=== PATIENT | male | born 1970 | race African-American/Black ===

== ENCOUNTER 2017-02-23 13:06 | Inpatient (IN) | payer MEDICAID ==
[~2017-02-23] VITALS: Ht 165.1 cm; Wt 59.0 kg
[~2017-02-23 13:06] MED LIST: BACL-141 PO; DOCU-138 PO; SENN-22 PO
[2017-02-23 15:00] LABS: MEAN CORPUSCULAR HEMOGLOBIN 25.7 pg (28.0-32.0); MEAN CORPUSCULAR VOLUME 80.4 fL (80.0-94.0); MEAN PLATELET VOLUME 7.2 fl (7.4-10.4); PLATELET 323 x1000/uL (130-400); RED BLOOD CELL COUNT 2.33 mill/uL (4.7-6.1); RED CELL DISTRIBUTION WIDTH 16.6 % (11.6-14.6)
[2017-02-23 15:05] LABS: INR 1.2; PROTHROMBIN TIME 12.1 sec
[2017-02-23 15:06] LABS: HEMATOCRIT. 18.7 % (42.0-52.0)
[2017-02-23 15:27] LABS: PLATELET ESTIMATE NORMAL
[2017-02-23 15:42] LABS: CHLORIDE 106 mEq/L (98-107)
[2017-02-23 15:50] LABS: CARBON DIOXIDE 20 mEq/L (21-32)
[2017-02-23 17:34] LABS: CLARITY URINE TURBID (CLEAR); COLOR URINE RED (YELLOW); GLUCOSE URINE NEGATIVE (NEGATIVE); KETONES URINE NEGATIVE (NEGATIVE); LEUKOCYTE ESTERASE URINE 3+ (NEGATIVE); NITRITE URINE POSITIVE (NEGATIVE); OCCULT BLOOD URINE 2+ (NEGATIVE); PH URINE 5.5 (4.5-8.0); PROTEIN URINE 2+ (NEGATIVE); SPECIFIC GRAVITY URINE 1.009 (1.005-1.030); UROBILINOGEN URINE 0.2 E.U./dL (0.2-1.0)
[2017-02-23] MEDS ORDERED: SODIUM CHLORIDE 0.9% 1,000 ML IV ONE (18:30)
[2017-02-23] MEDS ORDERED: LEVOFLOXACIN 500MG PREMIX 100 ML IV ONE (20:00)
[2017-02-23 21:27] LABS: HEMATOCRIT 23.8 % (42.0-52.0); HEMOGLOBIN 7.5 g/dL (14.0-18.0); MEAN CORPUSCULAR HEMOGLOBIN 25.9 pg (28.0-32.0); MEAN CORPUSCULAR VOLUME 82.1 fL (80.0-94.0); PLATELET 439 x1000/uL (130-400); RED CELL DISTRIBUTION WIDTH 16.7 % (11.6-14.6)
[2017-02-23] MEDS ORDERED: ZOLPIDEM TARTRATE 5MG TABLET PO PRN (21:45)
[2017-02-23] MEDS ORDERED: NA PHOS,M-B/NA PHOS,DI-BA ENEMA 118ML PR PRN (21:45)
[2017-02-23] MEDS ORDERED: DOCUSATE SODIUM 100MG CAPSULE PO PRN (21:45)
[2017-02-23] MEDS ORDERED: GUAIFENESIN 200MG/10ML SUGAR FREE UDC PO PRN (21:45)
[2017-02-23] MEDS ORDERED: LORAZEPAM 2MG/ML CPJ IV PRN (21:45)
[2017-02-23] MEDS ORDERED: IPRATROPIUM/ALBUTEROL 0.5-3(2.5)MG/3ML NEB INH PRN (21:45)
[2017-02-24] VITALS (35 sets, daily range): BP systolic 51–186; BP diastolic 25–135
[2017-02-24] MEDS: ACETAMINOPHEN 325MG TABLET PO PRN ×2 (01:17→23:28)
[2017-02-24] MEDS: SUCRALFATE 1 G/10 ML UDC PO SCH ×4 (06:35→22:03)
[2017-02-24 08:49] LABS: *AMPHETAMINES SCREEN URINE NEGATIVE (NEGATIVE); *BARBITURATES SCREEN URINE NEGATIVE (NEGATIVE); *BENZODIAZEPINES SCREEN URINE NEGATIVE (NEGATIVE); *COCAINE SCREEN URINE NEGATIVE (NEGATIVE); CANNABINOID URINE SCREEN NEGATIVE (NEGATIVE); OPIATES URINE SCREEN NEGATIVE (NEGATIVE); PHENCYCLIDINE URINE SCREEN NEGATIVE (NEGATIVE)
[2017-02-24 09:04] LABS: METHADONE URINE SCREEN NEGATIVE (NEGATIVE)
[2017-02-24] MEDS: PANTOPRAZOLE SODIUM 40 MG/VIAL IV SCH (10:35)
[2017-02-24] MEDS: ONDANSETRON HCL 4MG/2ML VIAL IV PRN (12:05)
[2017-02-24] MEDS ORDERED: SODIUM CHLORIDE 0.9% 500 ML IV STA (15:26)
[2017-02-24] MEDS ORDERED: SODIUM CHLORIDE 0.9% 500 ML IV NR (15:45)
[2017-02-24 16:39] LABS: HEMATOCRIT. 26.2 % (42.0-52.0); HEMOGLOBIN. 8.4 g/dL (14.0-18.0); MEAN CORPUSCULAR HEMOGLOBIN 27.5 pg (28.0-32.0); MEAN CORPUSCULAR VOLUME 85.8 fL (80.0-94.0); MEAN PLATELET VOLUME 7.9 fl (7.4-10.4); PLATELET 304 x1000/uL (130-400); RED BLOOD CELL COUNT 3.05 mill/uL (4.7-6.1); RED CELL DISTRIBUTION WIDTH 16.8 % (11.6-14.6)
[2017-02-24] MEDS ORDERED: SODIUM CHLORIDE 0.9% 1,000 ML IV STA (17:06)
[2017-02-24] MEDS: ALBUMIN HUMAN 25GM/100ML (25%) IV SCH (18:29)
[2017-02-24] MEDS: TRAMADOL 50MG TABLET PO PRN (18:44)
[2017-02-24] MEDS ORDERED: LEVOFLOXACIN 500MG PREMIX 100 ML IV SCH (20:00)
[2017-02-24 21:06] LABS: PLATELET ESTIMATE NORMAL
[2017-02-24] MEDS ORDERED: ALBUMIN HUMAN 25GM/100ML (25%) IV SCH (22:00)
[2017-02-24] MEDS: LEVOFLOXACIN 500MG PREMIX 100 ML IV SCH (22:03)
[2017-02-25] VITALS (64 sets, daily range): BP systolic 63–138; BP diastolic 39–116
[2017-02-25] MEDS: ALBUMIN HUMAN 25GM/100ML (25%) IV SCH ×2 (01:19→09:26)
[2017-02-25] MEDS: SUCRALFATE 1 G/10 ML UDC PO SCH ×4 (06:25→22:01)
[2017-02-25] MEDS: PANTOPRAZOLE SODIUM 40 MG/VIAL IV SCH (08:25)
[2017-02-25 09:15] LABS: HEMOGLOBIN. 7.5 g/dL (14.0-18.0); MEAN CORPUSCULAR HEMOGLOBIN 27.5 pg (28.0-32.0); MEAN CORPUSCULAR VOLUME 84.7 fL (80.0-94.0); MEAN PLATELET VOLUME 7.9 fl (7.4-10.4); PLATELET 232 x1000/uL (130-400); RED BLOOD CELL COUNT 2.72 mill/uL (4.7-6.1); RED CELL DISTRIBUTION WIDTH 16.6 % (11.6-14.6)
[2017-02-25 09:21] LABS: CHLORIDE 111 mEq/L (98-107)
[2017-02-25] MEDS: SODIUM CHLORIDE 0.9% 1,000 ML IV SCH ×2 (09:27→20:10)
[2017-02-25] MEDS: MIDODRINE HCL 2.5MG TABLET PO SCH ×3 (09:27→16:32)
[2017-02-25 09:28] LABS: CARBON DIOXIDE 17 mEq/L (21-32)
[2017-02-25 10:02] LABS: PLATELET ESTIMATE NORMAL
[2017-02-25] MEDS ORDERED: KCL 20MEQ/100ML PREMIX 100 ML IV ONE (11:00)
[2017-02-25] MEDS ORDERED: NOREPINEPHRINE 8 MG in DEXT 5% WATER 242 ML IV PRN (11:00)
[2017-02-25] MEDS ORDERED: POTASSIUM CHLORIDE INJ 40 MEQ in DEXT 5% WATER 250 ML IV ONE (11:00)
[2017-02-25] MEDS ORDERED: POTASSIUM CHLORIDE 20MEQ/PACKET PO NR (11:00)
[2017-02-25] MEDS ORDERED: MAGNESIUM 2 G PREMIX 50 ML IV SCH (12:00)
[2017-02-25] MEDS ORDERED: POTASSIUM CHLORIDE INJ 60 MEQ in DEXT 5% WATER 500 ML IV NR (12:30)
[2017-02-25] MEDS: ONDANSETRON HCL 4MG/2ML VIAL IV PRN (12:37)
[2017-02-25 14:40] LABS: HEMATOCRIT 27.2 % (42.0-52.0); HEMOGLOBIN 8.8 g/dL (14.0-18.0)
[2017-02-25] MEDS: TRAMADOL 50MG TABLET PO PRN ×2 (15:17→23:36)
[2017-02-25] MEDS: LEVOFLOXACIN 500MG PREMIX 100 ML IV SCH (20:10)
[2017-02-26] VITALS (26 sets, daily range): BP systolic 80–155; BP diastolic 37–108
[2017-02-26] MEDS: SUCRALFATE 1 G/10 ML UDC PO SCH ×4 (05:39→20:23)
[2017-02-26 05:52] LABS: HEMATOCRIT. 28.7 % (42.0-52.0); HEMOGLOBIN. 9.4 g/dL (14.0-18.0); MEAN CORPUSCULAR HEMOGLOBIN 28.4 pg (28.0-32.0); MEAN CORPUSCULAR VOLUME 86.7 fL (80.0-94.0); MEAN PLATELET VOLUME 8.1 fl (7.4-10.4); PLATELET 211 x1000/uL (130-400); RED BLOOD CELL COUNT 3.31 mill/uL (4.7-6.1)
[2017-02-26 06:54] LABS: CARBON DIOXIDE 19 mEq/L (21-32); CHLORIDE 114 mEq/L (98-107)
[2017-02-26 07:36] LABS: PLATELET ESTIMATE NORMAL
[2017-02-26] MEDS: PANTOPRAZOLE SODIUM 40 MG/VIAL IV SCH (08:07)
[2017-02-26] MEDS: MIDODRINE HCL 2.5MG TABLET PO SCH ×3 (08:08→16:31)
[2017-02-26] MEDS: SODIUM CHLORIDE 0.9% 1,000 ML IV SCH ×2 (11:56→23:56)
[2017-02-26] MEDS: LEVOFLOXACIN 500MG PREMIX 100 ML IV SCH (21:22)
[2017-02-26] MEDS: TRAMADOL 50MG TABLET PO PRN (23:52)
[2017-02-27] VITALS: BP 124/93
[2017-02-27 04:00] VITALS: BP 107/83
[2017-02-27] MEDS: SUCRALFATE 1 G/10 ML UDC PO SCH ×4 (05:54→21:56)
[2017-02-27 08:00] VITALS: BP 109/86
[2017-02-27] MEDS: MIDODRINE HCL 2.5MG TABLET PO SCH (08:48)
[2017-02-27] MEDS: PANTOPRAZOLE SODIUM 40 MG/VIAL IV SCH (08:48)
[2017-02-27 11:50] LABS: HEMATOCRIT. 26.1 % (42.0-52.0); HEMOGLOBIN. 8.6 g/dL (14.0-18.0); MEAN CORPUSCULAR HEMOGLOBIN 28.5 pg (28.0-32.0); MEAN CORPUSCULAR VOLUME 86.4 fL (80.0-94.0); MEAN PLATELET VOLUME 8.4 fl (7.4-10.4); PLATELET 213 x1000/uL (130-400); RED BLOOD CELL COUNT 3.02 mill/uL (4.7-6.1); RED CELL DISTRIBUTION WIDTH 17.3 % (11.6-14.6)
[2017-02-27 12:00] VITALS: BP 109/83
[2017-02-27 12:06] LABS: CARBON DIOXIDE 22 mEq/L (21-32); CHLORIDE 115 mEq/L (98-107)
[2017-02-27] MEDS ORDERED: POTASSIUM CHLORIDE 20MEQ TABLET SR PO SCH (12:45)
[2017-02-27 13:00] LABS: PLATELET ESTIMATE NORMAL
[2017-02-27] MEDS: MIDODRINE HCL 5MG TABLET PO SCH ×2 (13:45→17:33)
[2017-02-27] MEDS: TRAMADOL 50MG TABLET PO PRN (13:48)
[2017-02-27] MEDS: CEFEPIME 1,000 MG in DEXTROSE 5% WATER 50 ML IV SCH (13:51)
[2017-02-27] MEDS ORDERED: POTASSIUM CHLORIDE INJ 40 MEQ in DEXT 5% WATER 250 ML IV SCH (15:00)
[2017-02-27] MEDS ORDERED: MAGNESIUM 2 G PREMIX 50 ML IV SCH (15:00)
[2017-02-27 16:00] VITALS: BP 119/94
[2017-02-27] MEDS: SODIUM HYPOCHLORITE 0.125% 473ML SOLUTION TOP SCH (18:31)
[2017-02-27 20:00] VITALS: BP 119/90
[2017-02-28] VITALS: BP 138/80
[2017-02-28 04:00] VITALS: BP 116/90
[2017-02-28] MEDS: SODIUM CHLORIDE 0.9% 1,000 ML IV SCH ×2 (04:49→19:03)
[2017-02-28] MEDS: CEFEPIME 1,000 MG in DEXTROSE 5% WATER 50 ML IV SCH ×2 (04:49→15:14)
[2017-02-28] MEDS: SUCRALFATE 1 G/10 ML UDC PO SCH ×4 (06:54→20:10)
[2017-02-28 08:00] VITALS: BP 148/74
[2017-02-28] MEDS: PANTOPRAZOLE SODIUM 40 MG/VIAL IV SCH (08:39)
[2017-02-28] MEDS: TRAMADOL 50MG TABLET PO PRN ×2 (08:40→21:43)
[2017-02-28] MEDS: SODIUM HYPOCHLORITE 0.125% 473ML SOLUTION TOP SCH (08:46)
[2017-02-28] MEDS: MIDODRINE HCL 5MG TABLET PO SCH ×4 (09:00→17:21)
[2017-02-28 12:00] VITALS: BP 108/84
[2017-02-28 15:52] VITALS: BP 90/57
[2017-02-28 20:00] VITALS: BP 129/75
[2017-02-28] MEDS: ASCORBIC ACID 250 MG TABLET PO SCH (20:10)
[2017-02-28] MEDS: ONDANSETRON HCL 4MG/2ML VIAL IV PRN (21:31)
[2017-02-28] MEDS: BISACODYL 10MG SUPP PR PRN (21:40)
[2017-03-01] VITALS (7 sets, daily range): BP systolic 94–130; BP diastolic 64–94
[2017-03-01] MEDS: CEFEPIME 1,000 MG in DEXTROSE 5% WATER 50 ML IV SCH ×2 (00:39→12:27)
[2017-03-01] MEDS: ONDANSETRON HCL 4MG/2ML VIAL IV PRN ×2 (02:08→14:26)
[2017-03-01] MEDS: SODIUM CHLORIDE 0.9% 1,000 ML IV SCH ×2 (06:34→20:12)
[2017-03-01] MEDS: SUCRALFATE 1 G/10 ML UDC PO SCH ×4 (06:34→20:12)
[2017-03-01] MEDS: ZINC SULFATE 220 MG ( 50 ) CAPSULE PO SCH (09:47)
[2017-03-01] MEDS: PANTOPRAZOLE SODIUM 40 MG/VIAL IV SCH (09:47)
[2017-03-01] MEDS: MIDODRINE HCL 5MG TABLET PO SCH ×3 (09:48→17:48)
[2017-03-01] MEDS: TRAMADOL 50MG TABLET PO PRN ×2 (09:48→20:13)
[2017-03-01] MEDS: ASCORBIC ACID 250 MG TABLET PO SCH ×2 (09:48→20:12)
[2017-03-01] MEDS: MULTIVITAMINS,THER W-MINERALS TABLET PO SCH (09:48)
[2017-03-01] MEDS: SODIUM HYPOCHLORITE 0.125% 473ML SOLUTION TOP SCH (09:55)
[2017-03-01] MEDS: MAGNESIUM/ALUMINUM HYDROXIDE/SIMETHICONE 30ML UDC PO PRN (14:53)
[2017-03-02] VITALS: BP 110/84
[2017-03-02] MEDS: CEFEPIME 1,000 MG in DEXTROSE 5% WATER 50 ML IV SCH ×2 (00:13→12:39)
[2017-03-02 04:00] VITALS: BP 107/75
[2017-03-02] MEDS: SODIUM CHLORIDE 0.9% 1,000 ML IV SCH ×2 (06:27→20:33)
[2017-03-02] MEDS: SUCRALFATE 1 G/10 ML UDC PO SCH ×4 (06:27→20:33)
[2017-03-02 09:00] VITALS: BP 85/59
[2017-03-02] MEDS: ZINC SULFATE 220 MG ( 50 ) CAPSULE PO SCH (09:09)
[2017-03-02] MEDS: ASCORBIC ACID 250 MG TABLET PO SCH ×2 (09:09→20:33)
[2017-03-02] MEDS: MULTIVITAMINS,THER W-MINERALS TABLET PO SCH (09:09)
[2017-03-02] MEDS: PANTOPRAZOLE SODIUM 40 MG/VIAL IV SCH (09:09)
[2017-03-02] MEDS: MIDODRINE HCL 5MG TABLET PO SCH ×3 (09:13→17:43)
[2017-03-02 12:00] VITALS: BP 116/88
[2017-03-02] MEDS: SODIUM HYPOCHLORITE 0.125% 473ML SOLUTION TOP SCH (13:12)
[2017-03-02 16:00] VITALS: BP 126/92
[2017-03-02 20:00] VITALS: BP 105/70
[2017-03-02] MEDS: TRAMADOL 50MG TABLET PO PRN (20:41)
[2017-03-03] VITALS: BP 118/84
[2017-03-03] MEDS: CEFEPIME 1,000 MG in DEXTROSE 5% WATER 50 ML IV SCH ×2 (00:03→13:27)
[2017-03-03 04:00] VITALS: BP 122/79
[2017-03-03] MEDS: SUCRALFATE 1 G/10 ML UDC PO SCH ×4 (06:41→20:24)
[2017-03-03 08:00] VITALS: BP 87/56
[2017-03-03] MEDS: ZINC SULFATE 220 MG ( 50 ) CAPSULE PO SCH (10:09)
[2017-03-03] MEDS: ASCORBIC ACID 250 MG TABLET PO SCH ×2 (10:09→20:24)
[2017-03-03] MEDS: MULTIVITAMINS,THER W-MINERALS TABLET PO SCH (10:09)
[2017-03-03] MEDS: MIDODRINE HCL 5MG TABLET PO SCH ×3 (10:09→17:20)
[2017-03-03] MEDS: PANTOPRAZOLE SODIUM 40 MG/VIAL IV SCH (10:09)
[2017-03-03] MEDS: SODIUM HYPOCHLORITE 0.125% 473ML SOLUTION TOP SCH (10:10)
[2017-03-03] MEDS: SODIUM CHLORIDE 0.9% 1,000 ML IV SCH (10:57)
[2017-03-03 12:00] VITALS: BP 101/68
[2017-03-03] MEDS: TRAMADOL 50MG TABLET PO PRN (13:36)
[2017-03-03 16:00] VITALS: BP 136/104
[2017-03-03] MEDS: CLONIDINE 0.1MG TABLET PO PRN (17:20)
[2017-03-03 20:00] VITALS: BP 144/88
[2017-03-03] MEDS: MAGNESIUM/ALUMINUM HYDROXIDE/SIMETHICONE 30ML UDC PO PRN (20:33)
[2017-03-03] MEDS: BISACODYL 10MG SUPP PR PRN (20:33)
[2017-03-03 21:36] LABS: CARBON DIOXIDE 28 mEq/L (21-32); CHLORIDE 102 mEq/L (98-107)
[2017-03-03] MEDS ORDERED: POTASSIUM CHLORIDE 20MEQ TABLET SR PO NR (23:00)
[2017-03-04] VITALS: BP 94/63
[2017-03-04] MEDS: CEFEPIME 1,000 MG in DEXTROSE 5% WATER 50 ML IV SCH ×2 (00:15→16:25)
[2017-03-04] MEDS: ONDANSETRON HCL 4MG/2ML VIAL IV PRN (00:22)
[2017-03-04] MEDS: SODIUM CHLORIDE 0.9% 1,000 ML IV SCH (02:28)
[2017-03-04 04:00] VITALS: BP 97/64
[2017-03-04] MEDS: SUCRALFATE 1 G/10 ML UDC PO SCH ×4 (06:27→21:38)
[2017-03-04 08:00] VITALS: BP 141/98
[2017-03-04] MEDS: PANTOPRAZOLE SODIUM 40 MG/VIAL IV SCH (10:24)
[2017-03-04] MEDS: ZINC SULFATE 220 MG ( 50 ) CAPSULE PO SCH (10:26)
[2017-03-04] MEDS: MIDODRINE HCL 5MG TABLET PO SCH ×3 (10:29→16:31)
[2017-03-04] MEDS: ASCORBIC ACID 250 MG TABLET PO SCH ×2 (10:29→21:38)
[2017-03-04] MEDS: MULTIVITAMINS,THER W-MINERALS TABLET PO SCH (10:29)
[2017-03-04 12:00] VITALS: BP 106/72
[2017-03-04] MEDS ORDERED: DIATRIZOATE MEGLUMINE 300ML INFUS BTL UR ONE (12:11)
[2017-03-04] MEDS: SODIUM HYPOCHLORITE 0.125% 473ML SOLUTION TOP SCH (13:00)
[2017-03-04 16:00] VITALS: BP 134/74
[2017-03-04] MEDS: DEXT 5%/0.9% NACL 1,000 ML IV SCH (16:57)
[2017-03-04 20:00] VITALS: BP 122/89
[2017-03-05] VITALS: BP 120/86
[2017-03-05] MEDS: CEFEPIME 1,000 MG in DEXTROSE 5% WATER 50 ML IV SCH ×2 (01:13→13:59)
[2017-03-05 04:00] VITALS: BP 99/71
[2017-03-05] MEDS: DEXT 5%/0.9% NACL 1,000 ML IV SCH ×2 (05:21→21:10)
[2017-03-05 06:12] LABS: BASOPHILS % 0.6 % (0.0-2.0); EOSINOPHILS % 2.5 % (0.0-5.0); HEMATOCRIT. 27.6 % (42.0-52.0); HEMOGLOBIN. 9.1 g/dL (14.0-18.0); LYMPHOCYTES % 23.8 % (20.0-50.0); MEAN CORPUSCULAR HEMOGLOBIN 28.2 pg (28.0-32.0); MEAN CORPUSCULAR VOLUME 85.5 fL (80.0-94.0); MEAN PLATELET VOLUME 9.1 fl (7.4-10.4); MONOCYTES % 10.9 % (2.0-8.0); NEUTROPHILS % 62.2 % (40.0-76.0); PLATELET 202 x1000/uL (130-400); RED BLOOD CELL COUNT 3.22 mill/uL (4.7-6.1); RED CELL DISTRIBUTION WIDTH 17.1 % (11.6-14.6)
[2017-03-05 06:17] LABS: INR 1.3; PROTHROMBIN TIME 13.4 sec
[2017-03-05 06:43] LABS: CARBON DIOXIDE 29 mEq/L (21-32); CHLORIDE 101 mEq/L (98-107)
[2017-03-05] MEDS: SUCRALFATE 1 G/10 ML UDC PO SCH ×4 (06:45→21:06)
[2017-03-05 08:00] VITALS: BP 138/92
[2017-03-05] MEDS: ASCORBIC ACID 250 MG TABLET PO SCH ×2 (09:00→21:06)
[2017-03-05] MEDS: MIDODRINE HCL 5MG TABLET PO SCH ×3 (09:00→17:33)
[2017-03-05] MEDS: MULTIVITAMINS,THER W-MINERALS TABLET PO SCH (09:00)
[2017-03-05] MEDS: ZINC SULFATE 220 MG ( 50 ) CAPSULE PO SCH (09:00)
[2017-03-05] MEDS: PANTOPRAZOLE SODIUM 40 MG/VIAL IV SCH (09:34)
[2017-03-05 12:00] VITALS: BP 85/65
[2017-03-05] MEDS ORDERED: KCL 20MEQ/100ML PREMIX 100 ML IV SCH (12:00)
[2017-03-05 14:00] VITALS: BP 100/75
[2017-03-05] MEDS: SODIUM HYPOCHLORITE 0.125% 473ML SOLUTION TOP SCH (17:35)
[2017-03-05 20:00] VITALS: BP 149/90
[2017-03-05] MEDS: TRAMADOL 50MG TABLET PO PRN (21:07)
[2017-03-05] MEDS: MORPHINE SULFATE 2 MG/ML CPJ (NOT FOR IM USE) IV PRN (22:12)
[2017-03-06] VITALS: BP 122/86
[2017-03-06] MEDS: CEFEPIME 1,000 MG in DEXTROSE 5% WATER 50 ML IV SCH ×2 (00:32→16:43)
[2017-03-06 04:00] VITALS: BP 133/97
[2017-03-06] MEDS: MORPHINE SULFATE 2 MG/ML CPJ (NOT FOR IM USE) IV PRN ×4 (04:37→22:25)
[2017-03-06] MEDS: SUCRALFATE 1 G/10 ML UDC PO SCH ×4 (05:39→19:57)
[2017-03-06 08:42] VITALS: BP 88/46
[2017-03-06] MEDS: TRAMADOL 50MG TABLET PO PRN (09:20)
[2017-03-06] MEDS: MULTIVITAMINS,THER W-MINERALS TABLET PO SCH (09:21)
[2017-03-06] MEDS: MIDODRINE HCL 5MG TABLET PO SCH ×3 (09:21→16:43)
[2017-03-06] MEDS: ASCORBIC ACID 250 MG TABLET PO SCH ×2 (09:21→19:57)
[2017-03-06] MEDS: ZINC SULFATE 220 MG ( 50 ) CAPSULE PO SCH (09:21)
[2017-03-06] MEDS: PANTOPRAZOLE SODIUM 40 MG/VIAL IV SCH (09:23)
[2017-03-06] MEDS: SODIUM HYPOCHLORITE 0.125% 473ML SOLUTION TOP SCH (09:24)
[2017-03-06 12:07] VITALS: BP 107/74
[2017-03-06] MEDS: DEXT 5%/0.9% NACL 1,000 ML IV SCH (12:26)
[2017-03-06 16:21] VITALS: BP 112/80
[2017-03-06] MEDS: BISACODYL 10MG SUPP PR PRN (19:57)
[2017-03-06 20:00] VITALS: BP 103/69
[2017-03-07] VITALS: BP 101/71
[2017-03-07 04:00] VITALS: BP 103/68
[2017-03-07] MEDS: MORPHINE SULFATE 2 MG/ML CPJ (NOT FOR IM USE) IV PRN ×5 (04:21→22:00)
[2017-03-07] MEDS: SUCRALFATE 1 G/10 ML UDC PO SCH ×4 (06:02→22:09)
[2017-03-07] MEDS: DEXT 5%/0.9% NACL 1,000 ML IV SCH ×2 (06:02→22:15)
[2017-03-07 08:30] VITALS: BP 102/74
[2017-03-07] MEDS: ASCORBIC ACID 250 MG TABLET PO SCH ×2 (09:31→22:10)
[2017-03-07] MEDS: MIDODRINE HCL 5MG TABLET PO SCH ×3 (09:31→17:18)
[2017-03-07] MEDS: MULTIVITAMINS,THER W-MINERALS TABLET PO SCH (09:31)
[2017-03-07] MEDS: ZINC SULFATE 220 MG ( 50 ) CAPSULE PO SCH (09:32)
[2017-03-07] MEDS: SODIUM HYPOCHLORITE 0.125% 473ML SOLUTION TOP SCH (09:38)
[2017-03-07] MEDS: PANTOPRAZOLE SODIUM 40 MG/VIAL IV SCH (10:33)
[2017-03-07 13:07] LABS: MICROALBUMIN RANDOM URINE 674.1 ug/mL (Not Estab.)
[2017-03-07 16:48] VITALS: BP 109/66
[2017-03-07 20:00] VITALS: BP 118/75
[2017-03-08] VITALS: BP 124/87
[2017-03-08] MEDS: DIPHENHYDRAMINE 50MG/ML VIAL IV PRN ×3 (00:34→16:05)
[2017-03-08] MEDS: MORPHINE SULFATE 2 MG/ML CPJ (NOT FOR IM USE) IV PRN ×5 (02:18→20:46)
[2017-03-08 04:00] VITALS: BP 131/97
[2017-03-08] MEDS: SUCRALFATE 1 G/10 ML UDC PO SCH ×4 (06:42→20:45)
[2017-03-08 08:00] VITALS: BP 109/71
[2017-03-08] MEDS: SODIUM HYPOCHLORITE 0.125% 473ML SOLUTION TOP SCH (09:00)
[2017-03-08] MEDS: PANTOPRAZOLE SODIUM 40 MG/VIAL IV SCH (09:00)
[2017-03-08] MEDS: ZINC SULFATE 220 MG ( 50 ) CAPSULE PO SCH (09:00)
[2017-03-08] MEDS: ASCORBIC ACID 250 MG TABLET PO SCH ×2 (09:00→20:45)
[2017-03-08] MEDS: MIDODRINE HCL 5MG TABLET PO SCH ×3 (09:00→16:05)
[2017-03-08] MEDS: MULTIVITAMINS,THER W-MINERALS TABLET PO SCH (09:00)
[2017-03-08] MEDS: DEXT 5%/0.9% NACL 1,000 ML IV SCH (09:01)
[2017-03-08 12:00] VITALS: BP 101/62
[2017-03-08 16:00] VITALS: BP 140/95
[2017-03-08 20:00] VITALS: BP 104/70
[2017-03-09] VITALS: BP 106/76
[2017-03-09] MEDS: DEXT 5%/0.9% NACL 1,000 ML IV SCH ×3 (00:43→16:53)
[2017-03-09 04:00] VITALS: BP 135/64
[2017-03-09] MEDS: SUCRALFATE 1 G/10 ML UDC PO SCH ×5 (05:56→21:11)
[2017-03-09] MEDS: BISACODYL 10MG SUPP PR PRN (05:56)
[2017-03-09] MEDS: MORPHINE SULFATE 4 MG/ML CPJ (NOT FOR IM USE) IV PRN ×4 (06:02→21:12)
[2017-03-09 08:00] VITALS: BP 88/56
[2017-03-09] MEDS: SODIUM HYPOCHLORITE 0.125% 473ML SOLUTION TOP SCH (09:00)
[2017-03-09] MEDS: MIDODRINE HCL 5MG TABLET PO SCH ×3 (09:05→16:53)
[2017-03-09] MEDS: PANTOPRAZOLE SODIUM 40 MG/VIAL IV SCH (09:05)
[2017-03-09] MEDS: DIPHENHYDRAMINE 50MG/ML VIAL IV PRN ×3 (09:05→23:30)
[2017-03-09] MEDS: MULTIVITAMINS,THER W-MINERALS TABLET PO SCH (09:05)
[2017-03-09] MEDS: ZINC SULFATE 220 MG ( 50 ) CAPSULE PO SCH (09:06)
[2017-03-09] MEDS: ASCORBIC ACID 250 MG TABLET PO SCH ×2 (09:06→21:11)
[2017-03-09 12:00] VITALS: BP 152/87
[2017-03-09 16:00] VITALS: BP 114/73
[2017-03-09 20:00] VITALS: BP 121/82
[2017-03-10] VITALS (7 sets, daily range): BP systolic 94–142; BP diastolic 60–82
[2017-03-10] MEDS: MORPHINE SULFATE 4 MG/ML CPJ (NOT FOR IM USE) IV PRN ×4 (03:54→21:59)
[2017-03-10] MEDS: SUCRALFATE 1 G/10 ML UDC PO SCH ×4 (07:24→21:34)
[2017-03-10] MEDS: PANTOPRAZOLE SODIUM 40 MG/VIAL IV SCH (08:58)
[2017-03-10] MEDS: MIDODRINE HCL 5MG TABLET PO SCH ×3 (08:59→16:31)
[2017-03-10] MEDS: MULTIVITAMINS,THER W-MINERALS TABLET PO SCH (09:00)
[2017-03-10] MEDS: ASCORBIC ACID 250 MG TABLET PO SCH ×2 (09:00→21:34)
[2017-03-10] MEDS: ZINC SULFATE 220 MG ( 50 ) CAPSULE PO SCH (09:00)
[2017-03-10] MEDS: SODIUM HYPOCHLORITE 0.125% 473ML SOLUTION TOP SCH (15:41)
[2017-03-10] MEDS: DIPHENHYDRAMINE 50MG/ML VIAL IV PRN (15:58)
[2017-03-10] MEDS: DEXT 5%/0.9% NACL 1,000 ML IV SCH ×2 (16:32→16:34)
[2017-03-11] VITALS: BP 142/98
[2017-03-11] MEDS: DIPHENHYDRAMINE 50MG/ML VIAL IV PRN ×5 (00:15→23:56)
[2017-03-11 04:00] VITALS: BP 135/87
[2017-03-11] MEDS: MORPHINE SULFATE 4 MG/ML CPJ (NOT FOR IM USE) IV PRN ×4 (04:46→22:35)
[2017-03-11] MEDS: SUCRALFATE 1 G/10 ML UDC PO SCH ×4 (06:41→20:15)
[2017-03-11] MEDS: DEXT 5%/0.9% NACL 1,000 ML IV SCH ×2 (06:48→19:45)
[2017-03-11 08:00] VITALS: BP 124/66
[2017-03-11] MEDS: MULTIVITAMINS,THER W-MINERALS TABLET PO SCH (10:19)
[2017-03-11] MEDS: MIDODRINE HCL 5MG TABLET PO SCH ×3 (10:19→17:58)
[2017-03-11] MEDS: ZINC SULFATE 220 MG ( 50 ) CAPSULE PO SCH (10:19)
[2017-03-11] MEDS: PANTOPRAZOLE SODIUM 40 MG/VIAL IV SCH (10:20)
[2017-03-11] MEDS: ASCORBIC ACID 250 MG TABLET PO SCH ×2 (10:20→20:15)
[2017-03-11 12:00] VITALS: BP 100/67
[2017-03-11] MEDS: SODIUM HYPOCHLORITE 0.125% 473ML SOLUTION TOP SCH (12:00)
[2017-03-11 16:00] VITALS: BP 129/91
[2017-03-11 20:00] VITALS: BP 119/90
[2017-03-12] VITALS (8 sets, daily range): BP systolic 75–138; BP diastolic 46–100
[2017-03-12] MEDS: MORPHINE SULFATE 4 MG/ML CPJ (NOT FOR IM USE) IV PRN ×4 (02:21→23:06)
[2017-03-12] MEDS: DIPHENHYDRAMINE 50MG/ML VIAL IV PRN ×4 (04:30→23:05)
[2017-03-12] MEDS: SUCRALFATE 1 G/10 ML UDC PO SCH ×4 (06:19→20:14)
[2017-03-12] MEDS: ASCORBIC ACID 250 MG TABLET PO SCH ×2 (08:48→20:14)
[2017-03-12] MEDS: PANTOPRAZOLE SODIUM 40 MG/VIAL IV SCH (08:49)
[2017-03-12] MEDS: ZINC SULFATE 220 MG ( 50 ) CAPSULE PO SCH (08:49)
[2017-03-12] MEDS: MULTIVITAMINS,THER W-MINERALS TABLET PO SCH (08:49)
[2017-03-12] MEDS: SODIUM HYPOCHLORITE 0.125% 473ML SOLUTION TOP SCH (08:49)
[2017-03-12] MEDS: MIDODRINE HCL 5MG TABLET PO SCH ×3 (08:51→17:43)
[2017-03-12] MEDS: DEXT 5%/0.9% NACL 1,000 ML IV SCH (10:42)
[2017-03-12] MEDS: CLONIDINE 0.1MG TABLET PO PRN (14:12)
[2017-03-12] MEDS ORDERED: AMLODIPINE 5MG TABLET PO SCH (15:00)
[2017-03-13] VITALS: BP 135/92
[2017-03-13 04:00] VITALS: BP 128/92
[2017-03-13] MEDS: ACETAMINOPHEN 325MG TABLET PO PRN (04:22)
[2017-03-13] MEDS: MORPHINE SULFATE 4 MG/ML CPJ (NOT FOR IM USE) IV PRN ×5 (04:22→22:02)
[2017-03-13] MEDS: DIPHENHYDRAMINE 50MG/ML VIAL IV PRN ×5 (04:22→22:01)
[2017-03-13] MEDS: DEXT 5%/0.9% NACL 1,000 ML IV SCH ×2 (05:50→12:35)
[2017-03-13] MEDS: SUCRALFATE 1 G/10 ML UDC PO SCH ×4 (05:50→22:00)
[2017-03-13 08:00] VITALS: BP 118/89
[2017-03-13] MEDS: ZINC SULFATE 220 MG ( 50 ) CAPSULE PO SCH (08:49)
[2017-03-13] MEDS: MULTIVITAMINS,THER W-MINERALS TABLET PO SCH (08:49)
[2017-03-13] MEDS: PANTOPRAZOLE SODIUM 40 MG/VIAL IV SCH (08:50)
[2017-03-13] MEDS: ASCORBIC ACID 250 MG TABLET PO SCH ×2 (08:50→22:01)
[2017-03-13] MEDS: MIDODRINE HCL 5MG TABLET PO SCH ×3 (08:52→16:10)
[2017-03-13] MEDS: SODIUM HYPOCHLORITE 0.125% 473ML SOLUTION TOP SCH (09:00)
[2017-03-13 12:21] VITALS: BP 101/65
[2017-03-13 16:29] VITALS: BP 154/104
[2017-03-13 20:00] VITALS: BP 167/108
[2017-03-14] VITALS: BP 139/96
[2017-03-14] MEDS: DIPHENHYDRAMINE 50MG/ML VIAL IV PRN ×5 (02:13→22:47)
[2017-03-14] MEDS: MORPHINE SULFATE 4 MG/ML CPJ (NOT FOR IM USE) IV PRN ×4 (02:14→22:48)
[2017-03-14] MEDS: BISACODYL 10MG SUPP PR PRN (02:18)
[2017-03-14 04:00] VITALS: BP 136/86
[2017-03-14] MEDS: SUCRALFATE 1 G/10 ML UDC PO SCH ×4 (06:27→21:19)
[2017-03-14 08:00] VITALS: BP 99/61
[2017-03-14] MEDS: DEXT 5%/0.9% NACL 1,000 ML IV SCH (08:10)
[2017-03-14] MEDS: PANTOPRAZOLE SODIUM 40 MG/VIAL IV SCH (08:28)
[2017-03-14] MEDS: MULTIVITAMINS,THER W-MINERALS TABLET PO SCH (08:29)
[2017-03-14] MEDS: ASCORBIC ACID 250 MG TABLET PO SCH ×2 (08:29→21:19)
[2017-03-14] MEDS: MIDODRINE HCL 5MG TABLET PO SCH ×3 (08:29→17:03)
[2017-03-14] MEDS: ZINC SULFATE 220 MG ( 50 ) CAPSULE PO SCH (08:29)
[2017-03-14 12:00] VITALS: BP 121/84
[2017-03-14 16:00] VITALS: BP 134/90
[2017-03-14 20:00] VITALS: BP 149/99
[2017-03-14] MEDS: MAGNESIUM/ALUMINUM HYDROXIDE/SIMETHICONE 30ML UDC PO PRN (20:07)
[2017-03-15] VITALS: BP 93/57
[2017-03-15] MEDS: DIPHENHYDRAMINE 50MG/ML VIAL IV PRN ×5 (03:08→23:57)
[2017-03-15] MEDS: MORPHINE SULFATE 4 MG/ML CPJ (NOT FOR IM USE) IV PRN ×5 (03:08→21:22)
[2017-03-15 04:00] VITALS: BP 97/67
[2017-03-15] MEDS: SUCRALFATE 1 G/10 ML UDC PO SCH ×4 (05:50→21:22)
[2017-03-15 08:00] VITALS: BP 136/95
[2017-03-15] MEDS: PANTOPRAZOLE SODIUM 40 MG/VIAL IV SCH (08:15)
[2017-03-15] MEDS: ZINC SULFATE 220 MG ( 50 ) CAPSULE PO SCH (08:15)
[2017-03-15] MEDS: ASCORBIC ACID 250 MG TABLET PO SCH ×2 (08:15→21:22)
[2017-03-15] MEDS: MULTIVITAMINS,THER W-MINERALS TABLET PO SCH (08:16)
[2017-03-15] MEDS: MIDODRINE HCL 5MG TABLET PO SCH ×3 (08:16→17:17)
[2017-03-15 12:00] VITALS: BP 126/67
[2017-03-15] MEDS: DEXT 5%/0.9% NACL 1,000 ML IV SCH ×2 (12:45→23:57)
[2017-03-15 16:00] VITALS: BP 128/97
[2017-03-15 20:00] VITALS: BP 108/69
[2017-03-15] MEDS: ACETAMINOPHEN 325MG TABLET PO PRN (23:58)
[2017-03-16] VITALS: BP 103/71
[2017-03-16] MEDS: MORPHINE SULFATE 4 MG/ML CPJ (NOT FOR IM USE) IV PRN ×5 (02:07→20:30)
[2017-03-16 04:00] VITALS: BP 112/80
[2017-03-16] MEDS: SUCRALFATE 1 G/10 ML UDC PO SCH ×4 (05:55→20:29)
[2017-03-16] MEDS: DIPHENHYDRAMINE 50MG/ML VIAL IV PRN ×3 (05:55→22:26)
[2017-03-16 08:00] VITALS: BP 109/74
[2017-03-16] MEDS: ASCORBIC ACID 250 MG TABLET PO SCH ×2 (09:29→20:29)
[2017-03-16] MEDS: MULTIVITAMINS,THER W-MINERALS TABLET PO SCH (09:29)
[2017-03-16] MEDS: ZINC SULFATE 220 MG ( 50 ) CAPSULE PO SCH (09:29)
[2017-03-16] MEDS: MIDODRINE HCL 5MG TABLET PO SCH ×3 (09:30→19:00)
[2017-03-16] MEDS: PANTOPRAZOLE SODIUM 40 MG/VIAL IV SCH (09:30)
[2017-03-16 12:00] VITALS: BP 132/93
[2017-03-16] MEDS: DEXT 5%/0.9% NACL 1,000 ML IV SCH ×2 (15:15→20:20)
[2017-03-16 16:00] VITALS: BP 110/77
[2017-03-16 20:00] VITALS: BP 138/99
[2017-03-16] MEDS: ONDANSETRON HCL 4MG/2ML VIAL IV PRN (20:29)
[2017-03-17] VITALS: BP 128/93
[2017-03-17] MEDS: MORPHINE SULFATE 4 MG/ML CPJ (NOT FOR IM USE) IV PRN ×3 (00:40→09:18)
[2017-03-17 04:00] VITALS: BP_SYST 111
[2017-03-17] MEDS: DEXT 5%/0.9% NACL 1,000 ML IV SCH ×2 (04:27→23:51)
[2017-03-17] MEDS: SUCRALFATE 1 G/10 ML UDC PO SCH ×4 (06:04→20:26)
[2017-03-17 08:00] VITALS: BP 131/90
[2017-03-17] MEDS: ASCORBIC ACID 250 MG TABLET PO SCH ×2 (09:16→20:26)
[2017-03-17] MEDS: MULTIVITAMINS,THER W-MINERALS TABLET PO SCH (09:16)
[2017-03-17] MEDS: PANTOPRAZOLE SODIUM 40 MG/VIAL IV SCH (09:16)
[2017-03-17] MEDS: MIDODRINE HCL 5MG TABLET PO SCH ×3 (09:16→18:01)
[2017-03-17] MEDS: ZINC SULFATE 220 MG ( 50 ) CAPSULE PO SCH (09:16)
[2017-03-17] MEDS: HYDROCODONE/ACETAMINOPHEN 5/325MG TABLET PO PRN ×2 (12:21→20:27)
[2017-03-17] MEDS: DIPHENHYDRAMINE 50MG/ML VIAL IV PRN ×2 (13:26→21:47)
[2017-03-17 16:00] VITALS: BP 162/110
[2017-03-17] MEDS: CLONIDINE 0.1MG TABLET PO PRN (18:01)
[2017-03-17 20:00] VITALS: BP 105/71
[2017-03-18] VITALS: BP 84/56
[2017-03-18] MEDS: HYDROCODONE/ACETAMINOPHEN 5/325MG TABLET PO PRN ×5 (03:01→23:10)
[2017-03-18 04:00] VITALS: BP 118/88
[2017-03-18] MEDS: DIPHENHYDRAMINE 50MG/ML VIAL IV PRN ×5 (05:42→23:10)
[2017-03-18] MEDS: SUCRALFATE 1 G/10 ML UDC PO SCH ×4 (05:42→21:06)
[2017-03-18 08:00] VITALS: BP 117/80
[2017-03-18] MEDS: ZINC SULFATE 220 MG ( 50 ) CAPSULE PO SCH (09:28)
[2017-03-18] MEDS: PANTOPRAZOLE SODIUM 40 MG/VIAL IV SCH (09:28)
[2017-03-18] MEDS: MULTIVITAMINS,THER W-MINERALS TABLET PO SCH (09:30)
[2017-03-18] MEDS: ASCORBIC ACID 250 MG TABLET PO SCH ×2 (09:30→21:06)
[2017-03-18] MEDS: MIDODRINE HCL 5MG TABLET PO SCH ×3 (09:30→17:00)
[2017-03-18 12:00] VITALS: BP 131/76
[2017-03-18] MEDS: DEXT 5%/0.9% NACL 1,000 ML IV SCH (13:45)
[2017-03-18 16:00] VITALS: BP 138/94
[2017-03-18 20:00] VITALS: BP 131/91
[2017-03-18] MEDS: MORPHINE SULFATE 4 MG/ML CPJ (NOT FOR IM USE) IV PRN (21:13)
[2017-03-19] VITALS: BP 120/86
[2017-03-19 04:00] VITALS: BP 132/96
[2017-03-19] MEDS: DEXT 5%/0.9% NACL 1,000 ML IV SCH ×2 (04:09→17:29)
[2017-03-19] MEDS: DIPHENHYDRAMINE 50MG/ML VIAL IV PRN ×4 (04:09→21:19)
[2017-03-19] MEDS: MORPHINE SULFATE 4 MG/ML CPJ (NOT FOR IM USE) IV PRN (04:10)
[2017-03-19] MEDS: SUCRALFATE 1 G/10 ML UDC PO SCH ×4 (06:29→21:19)
[2017-03-19] MEDS: HYDROCODONE/ACETAMINOPHEN 5/325MG TABLET PO PRN ×4 (06:35→21:20)
[2017-03-19 08:00] VITALS: BP 91/60
[2017-03-19] MEDS: ZINC SULFATE 220 MG ( 50 ) CAPSULE PO SCH (10:09)
[2017-03-19] MEDS: PANTOPRAZOLE SODIUM 40 MG/VIAL IV SCH (10:09)
[2017-03-19] MEDS: ASCORBIC ACID 250 MG TABLET PO SCH ×2 (10:10→21:19)
[2017-03-19] MEDS: MULTIVITAMINS,THER W-MINERALS TABLET PO SCH (10:10)
[2017-03-19] MEDS: MIDODRINE HCL 5MG TABLET PO SCH ×3 (10:14→17:27)
[2017-03-19 12:00] VITALS: BP 126/88
[2017-03-19 16:00] VITALS: BP 97/64
[2017-03-19 20:00] VITALS: BP 92/56
[2017-03-20] VITALS (7 sets, daily range): BP systolic 105–169; BP diastolic 79–111
[2017-03-20] MEDS: DIPHENHYDRAMINE 50MG/ML VIAL IV PRN ×4 (02:36→19:55)
[2017-03-20] MEDS: HYDROCODONE/ACETAMINOPHEN 5/325MG TABLET PO PRN ×4 (02:37→19:56)
[2017-03-20] MEDS: SUCRALFATE 1 G/10 ML UDC PO SCH ×4 (06:15→20:22)
[2017-03-20] MEDS: DEXT 5%/0.9% NACL 1,000 ML IV SCH ×2 (06:16→18:11)
[2017-03-20] MEDS: ZINC SULFATE 220 MG ( 50 ) CAPSULE PO SCH (08:56)
[2017-03-20] MEDS: PANTOPRAZOLE SODIUM 40 MG/VIAL IV SCH (08:56)
[2017-03-20] MEDS: MULTIVITAMINS,THER W-MINERALS TABLET PO SCH (08:56)
[2017-03-20] MEDS: MIDODRINE HCL 5MG TABLET PO SCH ×3 (08:56→18:45)
[2017-03-20] MEDS: ASCORBIC ACID 250 MG TABLET PO SCH ×2 (08:56→20:22)
[2017-03-21] VITALS: BP 113/79
[2017-03-21] MEDS: DIPHENHYDRAMINE 50MG/ML VIAL IV PRN ×5 (00:22→20:08)
[2017-03-21] MEDS: HYDROCODONE/ACETAMINOPHEN 5/325MG TABLET PO PRN ×4 (00:23→20:09)
[2017-03-21] MEDS: BISACODYL 10MG SUPP PR PRN (00:37)
[2017-03-21] MEDS: PANTOPRAZOLE 40MG DR TABLET PO SCH (05:47)
[2017-03-21] MEDS: SUCRALFATE 1 G/10 ML UDC PO SCH ×4 (05:47→20:08)
[2017-03-21 05:56] VITALS: BP 130/95
[2017-03-21 08:43] VITALS: BP 113/80
[2017-03-21] MEDS: MIDODRINE HCL 5MG TABLET PO SCH ×3 (10:59→17:34)
[2017-03-21] MEDS: ZINC SULFATE 220 MG ( 50 ) CAPSULE PO SCH (10:59)
[2017-03-21] MEDS: MULTIVITAMINS,THER W-MINERALS TABLET PO SCH (10:59)
[2017-03-21] MEDS: ASCORBIC ACID 250 MG TABLET PO SCH ×2 (11:00→20:08)
[2017-03-21] MEDS: DEXT 5%/0.9% NACL 1,000 ML IV SCH ×2 (11:00→20:08)
[2017-03-21 12:00] VITALS: BP 138/98
[2017-03-21 16:00] VITALS: BP 160/111
[2017-03-21 20:00] VITALS: BP 137/95
[2017-03-22] VITALS: BP 148/94
[2017-03-22] MEDS: DIPHENHYDRAMINE 50MG/ML VIAL IV PRN ×4 (01:00→18:23)
[2017-03-22] MEDS: HYDROCODONE/ACETAMINOPHEN 5/325MG TABLET PO PRN ×5 (01:01→18:23)
[2017-03-22 04:00] VITALS: BP 155/97
[2017-03-22] MEDS: SUCRALFATE 1 G/10 ML UDC PO SCH ×4 (06:31→20:46)
[2017-03-22] MEDS: PANTOPRAZOLE 40MG DR TABLET PO SCH (06:31)
[2017-03-22 08:00] VITALS: BP 92/58
[2017-03-22] MEDS: MIDODRINE HCL 5MG TABLET PO SCH ×3 (09:00→18:23)
[2017-03-22] MEDS: ZINC SULFATE 220 MG ( 50 ) CAPSULE PO SCH (10:16)
[2017-03-22] MEDS: MULTIVITAMINS,THER W-MINERALS TABLET PO SCH (10:16)
[2017-03-22] MEDS: ASCORBIC ACID 250 MG TABLET PO SCH ×2 (10:18→20:47)
[2017-03-22 12:00] VITALS: BP 121/91
[2017-03-22] MEDS: DEXT 5%/0.9% NACL 1,000 ML IV SCH (13:21)
[2017-03-22 16:00] VITALS: BP 149/103
[2017-03-22 19:56] VITALS: BP 138/96
[2017-03-23] VITALS (8 sets, daily range): BP systolic 66–164; BP diastolic 36–108
[2017-03-23] MEDS: CLONIDINE 0.1MG TABLET PO PRN ×2 (00:28→17:01)
[2017-03-23] MEDS: HYDROCODONE/ACETAMINOPHEN 5/325MG TABLET PO PRN ×4 (00:28→23:30)
[2017-03-23] MEDS: DEXT 5%/0.9% NACL 1,000 ML IV SCH ×2 (00:59→17:06)
[2017-03-23] MEDS: PANTOPRAZOLE 40MG DR TABLET PO SCH (06:38)
[2017-03-23] MEDS: SUCRALFATE 1 G/10 ML UDC PO SCH ×4 (06:38→22:23)
[2017-03-23] MEDS: ASCORBIC ACID 250 MG TABLET PO SCH ×2 (08:30→22:24)
[2017-03-23] MEDS: MULTIVITAMINS,THER W-MINERALS TABLET PO SCH (08:30)
[2017-03-23] MEDS: ZINC SULFATE 220 MG ( 50 ) CAPSULE PO SCH (08:30)
[2017-03-23] MEDS: DIPHENHYDRAMINE 50MG/ML VIAL IV PRN ×3 (08:30→23:00)
[2017-03-23] MEDS: MIDODRINE HCL 5MG TABLET PO SCH ×3 (08:33→17:00)
[2017-03-23] MEDS: ACETAMINOPHEN 325MG TABLET PO PRN (17:01)
[2017-03-23] MEDS: BISACODYL 10MG SUPP PR PRN (22:24)
[2017-03-24] VITALS: BP 123/77
[2017-03-24] MEDS: DEXT 5%/0.9% NACL 1,000 ML IV SCH (05:21)
[2017-03-24] MEDS: HYDROCODONE/ACETAMINOPHEN 5/325MG TABLET PO PRN ×4 (05:21→21:08)
[2017-03-24] MEDS: PANTOPRAZOLE 40MG DR TABLET PO SCH (06:57)
[2017-03-24] MEDS: SUCRALFATE 1 G/10 ML UDC PO SCH (06:57)
[2017-03-24 08:00] VITALS: BP 101/66
[2017-03-24] MEDS: ZINC SULFATE 220 MG ( 50 ) CAPSULE PO SCH (10:08)
[2017-03-24] MEDS: MULTIVITAMINS,THER W-MINERALS TABLET PO SCH (10:08)
[2017-03-24] MEDS: ASCORBIC ACID 250 MG TABLET PO SCH ×2 (10:08→21:08)
[2017-03-24] MEDS: MIDODRINE HCL 5MG TABLET PO SCH ×3 (10:09→18:47)
[2017-03-24 12:00] VITALS: BP 128/80
[2017-03-24 16:00] VITALS: BP 93/65
[2017-03-24] MEDS: DIPHENHYDRAMINE 50MG/ML VIAL IV PRN (18:48)
[2017-03-24 20:00] VITALS: BP 138/94
[2017-03-25] VITALS: BP 116/83
[2017-03-25] MEDS: DIPHENHYDRAMINE 50MG/ML VIAL IV PRN ×4 (02:00→19:07)
[2017-03-25 04:00] VITALS: BP 125/81
[2017-03-25] MEDS: PANTOPRAZOLE 40MG DR TABLET PO SCH (07:09)
[2017-03-25] MEDS: DEXT 5%/0.9% NACL 1,000 ML IV SCH ×2 (07:11→17:06)
[2017-03-25 08:00] VITALS: BP 132/88
[2017-03-25] MEDS: MIDODRINE HCL 5MG TABLET PO SCH (09:04)
[2017-03-25] MEDS: MULTIVITAMINS,THER W-MINERALS TABLET PO SCH (09:04)
[2017-03-25] MEDS: ZINC SULFATE 220 MG ( 50 ) CAPSULE PO SCH (09:04)
[2017-03-25] MEDS: ASCORBIC ACID 250 MG TABLET PO SCH ×2 (09:04→21:21)
[2017-03-25] MEDS: HYDROCODONE/ACETAMINOPHEN 5/325MG TABLET PO PRN ×3 (09:14→19:07)
[2017-03-25 12:00] VITALS: BP 114/64
[2017-03-25 16:00] VITALS: BP 128/94
[2017-03-25 20:00] VITALS: BP 123/87
[2017-03-26] VITALS: BP 154/120
[2017-03-26] MEDS: DIPHENHYDRAMINE 50MG/ML VIAL IV PRN ×4 (00:27→18:16)
[2017-03-26] MEDS: HYDROCODONE/ACETAMINOPHEN 5/325MG TABLET PO PRN ×4 (00:27→18:17)
[2017-03-26 04:00] VITALS: BP 144/71
[2017-03-26] MEDS: DEXT 5%/0.9% NACL 1,000 ML IV SCH ×2 (07:29→21:17)
[2017-03-26] MEDS: PANTOPRAZOLE 40MG DR TABLET PO SCH (07:32)
[2017-03-26 08:00] VITALS: BP 137/92
[2017-03-26] MEDS: ZINC SULFATE 220 MG ( 50 ) CAPSULE PO SCH (08:20)
[2017-03-26] MEDS: MULTIVITAMINS,THER W-MINERALS TABLET PO SCH (08:20)
[2017-03-26] MEDS: ASCORBIC ACID 250 MG TABLET PO SCH ×2 (08:20→21:15)
[2017-03-26 12:00] VITALS: BP 122/83
[2017-03-26 16:00] VITALS: BP 147/98
[2017-03-26 20:00] VITALS: BP 100/68
[2017-03-26] MEDS: BISACODYL 10MG SUPP PR PRN (22:34)
[2017-03-27] VITALS: BP 115/70
[2017-03-27] MEDS: DIPHENHYDRAMINE 50MG/ML VIAL IV PRN ×4 (03:51→21:30)
[2017-03-27 04:00] VITALS: BP 135/90
[2017-03-27] MEDS: PANTOPRAZOLE 40MG DR TABLET PO SCH (07:11)
[2017-03-27 08:00] VITALS: BP 115/84
[2017-03-27] MEDS: ZINC SULFATE 220 MG ( 50 ) CAPSULE PO SCH (08:37)
[2017-03-27] MEDS: ASCORBIC ACID 250 MG TABLET PO SCH ×2 (08:37→21:28)
[2017-03-27] MEDS: MULTIVITAMINS,THER W-MINERALS TABLET PO SCH (08:37)
[2017-03-27] MEDS: HYDROCODONE/ACETAMINOPHEN 5/325MG TABLET PO PRN ×3 (08:39→21:30)
[2017-03-27] MEDS: DEXT 5%/0.9% NACL 1,000 ML IV SCH (09:40)
[2017-03-27 12:00] VITALS: BP 108/75
[2017-03-27 16:00] VITALS: BP 149/101
[2017-03-27] MEDS: CLONIDINE 0.1MG TABLET PO PRN (16:12)
[2017-03-27 20:00] VITALS: BP 120/77
[2017-03-28] VITALS: BP 133/93
[2017-03-28] MEDS: BISACODYL 10MG SUPP PR PRN (00:57)
[2017-03-28] MEDS: DEXT 5%/0.9% NACL 1,000 ML IV SCH (00:57)
[2017-03-28] MEDS: HYDROCODONE/ACETAMINOPHEN 5/325MG TABLET PO PRN ×4 (02:20→20:34)
[2017-03-28 04:00] VITALS: BP 96/66
[2017-03-28 08:00] VITALS: BP 94/69
[2017-03-28] MEDS: ASCORBIC ACID 250 MG TABLET PO SCH ×2 (08:21→20:34)
[2017-03-28] MEDS: PANTOPRAZOLE 40MG DR TABLET PO SCH (08:21)
[2017-03-28] MEDS: ZINC SULFATE 220 MG ( 50 ) CAPSULE PO SCH (08:21)
[2017-03-28] MEDS: MULTIVITAMINS,THER W-MINERALS TABLET PO SCH (08:21)
[2017-03-28] MEDS: DIPHENHYDRAMINE 50MG/ML VIAL IV PRN ×2 (11:32→17:20)
[2017-03-28 12:00] VITALS: BP 114/76
[2017-03-28 16:00] VITALS: BP 108/70
[2017-03-28 20:00] VITALS: BP 98/66
[2017-03-29] VITALS: BP 135/92
[2017-03-29 04:00] VITALS: BP 114/75
[2017-03-29] MEDS: PANTOPRAZOLE 40MG DR TABLET PO SCH (06:24)
[2017-03-29] MEDS: DEXT 5%/0.9% NACL 1,000 ML IV SCH ×2 (06:26→22:45)
[2017-03-29 08:00] VITALS: BP 130/102
[2017-03-29] MEDS: ZINC SULFATE 220 MG ( 50 ) CAPSULE PO SCH (08:41)
[2017-03-29] MEDS: MULTIVITAMINS,THER W-MINERALS TABLET PO SCH (08:41)
[2017-03-29] MEDS: DIPHENHYDRAMINE 50MG/ML VIAL IV PRN ×3 (08:42→19:37)
[2017-03-29] MEDS: HYDROCODONE/ACETAMINOPHEN 5/325MG TABLET PO PRN ×3 (08:42→19:37)
[2017-03-29 12:00] VITALS: BP 105/71
[2017-03-29 16:00] VITALS: BP 111/78
[2017-03-29 20:00] VITALS: BP 111/75
[2017-03-29] MEDS ORDERED: ONDANSETRON HCL 4MG/2ML VIAL IV PRN (23:30)
[2017-03-29] MEDS ORDERED: LACTULOSE 20G/30ML UDC PO NR (23:30)
[2017-03-30 04:00] VITALS: BP 115/77
[2017-03-30 08:00] VITALS: BP 87/64
[2017-03-30] MEDS: DIPHENHYDRAMINE 50MG/ML VIAL IV PRN (10:04)
[2017-03-30] MEDS: PANTOPRAZOLE 40MG DR TABLET PO SCH (10:04)
[2017-03-30 12:00] VITALS: BP 100/64
[2017-03-30] MEDS ORDERED: BISACODYL 10MG SUPP PR SCH (12:00)
[2017-03-30] MEDS: HYDROCODONE/ACETAMINOPHEN 5/325MG TABLET PO PRN (13:40)
[2017-03-30] MEDS: DEXT 5%/0.9% NACL 1,000 ML IV SCH (14:07)
[2017-03-30 16:00] VITALS: BP 81/53
[2017-03-30 20:00] VITALS: BP 119/78
[2017-03-31] VITALS: BP 99/60
[2017-03-31] MEDS: DIPHENHYDRAMINE 50MG/ML VIAL IV PRN ×2 (01:12→09:13)
[2017-03-31] MEDS: HYDROCODONE/ACETAMINOPHEN 5/325MG TABLET PO PRN ×2 (01:13→09:13)
[2017-03-31 04:00] VITALS: BP 127/90
[2017-03-31] MEDS: DEXT 5%/0.9% NACL 1,000 ML IV SCH (06:37)
[2017-03-31] MEDS: PANTOPRAZOLE 40MG DR TABLET PO SCH (06:37)
[2017-03-31 08:00] VITALS: BP 129/93
[2017-03-31 12:00] VITALS: BP 97/61
[2017-03-31] MEDS ORDERED: BISACODYL 10MG SUPP PR NR (15:00)
[2017-03-31] MEDS ORDERED: MAGNESIUM HYDROXIDE 400MG/5ML 30ML UDC PO NR (15:15)
[2017-03-31 16:00] VITALS: BP 185/116
[2017-03-31] MEDS: CLONIDINE 0.1MG TABLET PO PRN (16:08)
[2017-03-31 18:00] VITALS: BP 129/93
== END 2017-03-31 19:15 | disposition home health service (06) | DRG 720 ==
LOC: ER 13:06 → 3WST 21:44 → ENRESERV 22:16 → MICUNO 02-25 08:48 → 5WST 02-26 14:46 → 6EST 03-24 21:50
PROVIDERS: ADMIT Internal Medicine; ATTEND Internal Medicine
PROC: 30233N1 Transfusion of Nonautologous Red Blood Cells into Peripheral Vein, Percutaneous Approach (ICD-10-PCS; 2017-02-23)
PROC: 02HV33Z Insertion of Infusion Device into Superior Vena Cava, Percutaneous Approach (ICD-10-PCS; principal; 2017-02-26)
PROC: B548ZZA Ultrasonography of Superior Vena Cava, Guidance (ICD-10-PCS; 2017-02-26)
DX: A41.9 Sepsis, unspecified organism (principal); E43 Unspecified severe protein-calorie malnutrition; G82.20 Paraplegia, unspecified; N31.2 Flaccid neuropathic bladder, not elsewhere classified; D62 Acute posthemorrhagic anemia; N31.9 Neuromuscular dysfunction of bladder, unspecified; R31.0 Gross hematuria; N20.0 Calculus of kidney; B96.5 Pseudomonas (aeruginosa) (mallei) (pseudomallei) as the cause of diseases classified elsewhere; N39.0 Urinary tract infection, site not specified; N32.89 Other specified disorders of bladder; I10 Essential (primary) hypertension; L89.90 Pressure ulcer of unspecified site, unspecified stage; Z87.442 Personal history of urinary calculi; Z93.3 Colostomy status; Z75.1 Person awaiting admission to adequate facility elsewhere; Z79.899 Other long term (current) drug therapy
CPT/HCPCS: 36415; 36569; 71010; 74000; 74176; 76700; 76857; 76937; 80048; 80053; 80305; 81001; 82043; 82565; 82570; 82962; 83735; 85014; 85018; 85025; 85027; 85610; 85730; 86850; 86900; 86920; 87077; 87086; 87186; 94640; 96361; 96365; 97161; 97162; 97166; 99285; C1725; C1892; C9113; J0692; J1200; J1956; J2270; J2405; J3475; J3480; J3490; J7030; J7040; J7042; J7060; J7070; J7620; P9016; P9021; P9047; Q9958; A4315